=== PATIENT | male | born 2000 | race Hispanic/Latino ===

== ENCOUNTER 2020-02-13 20:41 | Emergency (ER) | payer OTHER ==
[~2020-02-13] VITALS: Ht 175.3 cm; Wt 70.1 kg
[~2020-02-13 20:41] MED LIST: AMOXICILLIN/PO500 MG PO; AMOXICILLIN500 MG PO; BACTRIM DS1 TAB PO; FLOXIN OTIC0.3 % OT; SULFATRIM1 ML OR
[2020-02-13 21:14] LABS: HEMATOCRIT 41.4 % (39.0-50.0); IMMATURE GRANULOCYTES 0.3 % (0.0-5.0); MEAN CELL VOLUME 91.2 fL CALC (80.0-100.0); MEAN CORPUSCULAR HGB 30.8 pG CALC (26.0-32.0); MEAN CORPUSCULAR HGB CONC 33.8 g/dL CAL (32.0-36.0); NEUT# 9.24 thou/uL (1.82-7.42); RED BLOOD COUNT 4.54 mill/uL (4.70-6.10); RED CELL DISTRI WIDTH 12.6 % (11.5-15.5)
[2020-02-13 22:20] VITALS: BP 114/53
[2020-02-13] MEDS ORDERED: AMOXICILLIN500 MG PO (22:28)
== END 2020-02-13 22:40 | disposition home or self-care (01) ==
LOC: ED 20:41
PROVIDERS: Family Medicine
DX: J03.90 Acute tonsillitis, unspecified (principal); R76.8 Other specified abnormal immunological findings in serum; Z20.828 Contact with and (suspected) exposure to other viral communicable diseases

== ENCOUNTER 2020-09-12 | Emergency (ER) | payer OTHER ==
[2020-09-12] MEDS ORDERED: KEFLEX500 M1 PO (15:36)
== END 2020-09-12 15:45 | disposition home or self-care (01) ==
DX: S61.442A Puncture wound with foreign body of left hand, initial encounter (principal); W34.010A Accidental discharge of airgun, initial encounter; Y92.009 Unspecified place in unspecified non-institutional (private) residence as the place of occurrence of the external cause

== ENCOUNTER 2020-09-18 12:48 | Emergency (ER) | payer OTHER ==
[~2020-09-18 12:48] MED LIST changes: +KEFLEX500 M1 PO
[2020-09-18 13:56] LABS: HEMATOCRIT 44.1 % (39.0-50.0); HEMOGLOBIN 14.9 g/dl (14.0-18.0); IMMATURE GRANULOCYTES 0.4 % (0.0-5.0); MEAN CELL VOLUME 91.1 fL CALC (80.0-100.0); MEAN CORPUSCULAR HGB 30.8 pG CALC (26.0-32.0); MEAN CORPUSCULAR HGB CONC 33.8 g/dL CAL (32.0-36.0); NEUT# 5.08 thou/uL (1.82-7.42); RED BLOOD COUNT 4.84 mill/uL (4.70-6.10); RED CELL DISTRI WIDTH 12.3 % (11.5-15.5); URINE BILIRUBIN - DIPSTICK NEGATIVE (NEGATIVE); URINE BLOOD DIPSTICK TRACE-INTACT (NEGATIVE); URINE COLOR YELLOW; URINE GLUCOSE - DIPSTICK NEGATIVE (NEGATIVE); URINE KETONE NEGATIVE (NEGATIVE); URINE LEUK ESTERASE NEGATIVE (NEGATIVE); URINE PH 6.5 (4.5-8.0); URINE PROTEIN - DIPSTICK NEGATIVE (NEG-TRACE); URINE SPECIFIC GRAVITY 1.015; URINE UROBILINOGEN - DIPSTICK 0.2 E.U./dL (0.2)
[2020-09-18 13:59] LABS: URINE NITRITE - DIPSTICK NEGATIVE (Negative)
[2020-09-18 14:10] LABS: ALBUMIN 4.3 g/dL (3.2-5.0); ALKALINE PHOSPHATASE 59 u/l (38-126); ANION GAP 11 (6-22 (CALC)); BILIRUBIN, TOTAL 0.6 mg/dL (0.0-1.4); BUN 10 mg/dL (8-21); BUN/CREATININE RATIO 13 (12-20 (CALC)); CARBON DIOXIDE 25 mmol/l (22-30); CHLORIDE 100 mmol/l (95-108); CREATININE 0.8 mg/dL (0.7-1.3); GFR > 60 ML/MIN (>=60 (CALC)); GFR FOR AFR.AMER. > 60 ML/MIN (>=60 (CALC)); LIPASE 64 u/l (23-300); POTASSIUM 3.7 mmol/l (3.5-5.1); SGOT/AST 26 u/l (17-59); SODIUM 132 mmol/l (137-146); TOTAL PROTEIN 7.8 g/dL (6.3-8.2)
[2020-09-18] MEDS ORDERED: METRONIDAZOL250 MG PO (15:41)
[2020-09-18] MEDS ORDERED: HYDROCO/APAP1 TA9 PO (15:41)
[2020-09-18 15:45] VITALS: BP 117/67
== END 2020-09-18 15:56 | disposition home or self-care (01) ==
LOC: ED 12:48
DX: K52.9 Noninfective gastroenteritis and colitis, unspecified (principal); S61.432D Puncture wound without foreign body of left hand, subsequent encounter; W34.010D Accidental discharge of airgun, subsequent encounter; Z20.822 Contact with and (suspected) exposure to COVID-19
CPT/HCPCS: Q9967

== ENCOUNTER 2021-07-21 06:01 | Emergency (ER) | payer OTHER ==
[~2021-07-21] VITALS: Ht 172.7 cm; Wt 72.0 kg
[~2021-07-21 06:01] MED LIST changes: +HYDROCO/APAP1 TA9 PO; +METRONIDAZOL250 MG PO
[2021-07-21] MEDS ORDERED: ZPAK PO (08:10)
[2021-07-21 09:30] VITALS: BP 131/69
[2021-07-21 10:01] VITALS: BP 130/72
[2021-07-21 13:00] VITALS: BP 120/80
[2021-07-21 13:30] VITALS: BP 119/65
[2021-07-21 14:00] VITALS: BP 123/77
[2021-07-21 15:36] VITALS: BP 146/85
== END 2021-07-21 10:00 | disposition home or self-care (01) | DRG 153 ==
LOC: ED 06:01
DX: J06.9 Acute upper respiratory infection, unspecified (principal); Z20.822 Contact with and (suspected) exposure to COVID-19